=== PATIENT | male | born 2000 | race Hispanic/Latino ===

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

== ENCOUNTER 2020-12-10 08:23 | Emergency (ER) | payer OTHER, SELFPAY ==
[2020-12-10] MEDS ORDERED: ONDANSETRON HCL 4 MG/2 ML VIAL ONE (08:50)
[2020-12-10 08:56] LABS: BASOPHILS % (AUTO) 0.3 % (0.0-5.0); EOSINOPHILS % (AUTO) 0.5 % (0.0-8.0); LYMPHOCYTES % (AUTO) 8.2 % (21.0-51.0); MEAN CORPUSCULAR HEMOGLOBIN 29.6 pg (27.0-33.0); MEAN CORPUSCULAR VOLUME 84.5 fL (80-100); MONOCYTES % (AUTO) 11.2 % (3.0-13.0); NEUTROPHILS % (AUTO) 79.2 % (40.0-77.0); PLATELET COUNT (AUTO) 262 K/uL (130-400); RED BLOOD CELL COUNT(AUTO) 5.92 MIL/uL (4.50-6.20); RED CELL DISTRIBUTION WIDTH 12.8 % (11.0-15.5); WHITE BLOOD COUNT (AUTO) 14.6 K/uL (4.8-10.8)
[2020-12-10 09:08] LABS: CREATININE 1.2 mg/dL (0.5-1.5); POTASSIUM 3.1 mmol/L (3.5-5.1)
[2020-12-10 09:12] LABS: ALBUMIN 4.3 g/dL (3.5-5.0); BILIRUBIN,TOTAL 1.3 mg/dL (0.2-1.0); TOTAL PROTEIN, SERUM 8.1 g/dL (6.0-8.3)
== END 2020-12-10 10:54 | disposition home or self-care (01) ==
LOC: EDH 08:23
DX: K52.9 Noninfective gastroenteritis and colitis, unspecified (principal)
CPT/HCPCS: 36415; 80053; 82150; 83690; 85025; 96361 ×2; 96374; 99283; J2405; J7030

== ENCOUNTER 2022-05-18 07:02 | Emergency (ER) | payer OTHER ==
[~2022-05-18] VITALS: Ht 177.8 cm; Wt 99.8 kg
[2022-05-18] MEDS ORDERED: KETOROLAC 30MG VIAL (30MG/ML) IM STA (07:12)
[2022-05-18] MEDS ORDERED: ORPHENADRINE CITRATE 30 MG/ML ML IM STA (07:12)
[2022-05-18 07:13] VITALS: BP 135/74
[2022-05-18] MEDS ORDERED: NAPR375T6 PO (09:22)
== END 2022-05-18 09:37 | disposition home or self-care (01) ==
LOC: EDH 07:02
DX: S39.012A Strain of muscle, fascia and tendon of lower back, initial encounter (principal); X50.0XXA Overexertion from strenuous movement or load, initial encounter; Y93.89 Activity, other specified; Y92.89 Other specified places as the place of occurrence of the external cause; Y99.8 Other external cause status
CPT/HCPCS: 72100; J1885

== ENCOUNTER 2024-08-29 12:25 | Emergency (ER) | payer OTHER ==
[~2024-08-29] VITALS: Ht 177.8 cm; Wt 101.6 kg
[~2024-08-29 12:25] MED LIST: NAPR-1505 PO
[2024-08-29] MEDS ORDERED: MELO-108 PO (12:48)
--- NOTE | 2024-08-29 12:49 | ERN ---
General Chief Complaint: Back Pain or Injury Stated Complaint: BACK PAIN Time Seen by MD: 12:27 History of Present Illness Initial Comments 24-year-old male who presents for back pain. He was lifting on Tuesday, he was more weight than usual. He felt fine at that time, but he woke up the next morning with some lower thoracic spine pain. It is paraspinal increases with movement and bending. He is not taking any medicine for this. His symptoms are improving, but he reports he still feels in his irritating. No motor d ysfunction. Allergies: Coded Allergies: No Known Allergies (Unverified Allergy, Unknown, 05/18/22) Home Meds Active Scripts Naproxen (Naproxen) 375 Mg Tablet., 375 MG PO BID for 10 Days, #20 TAB Prov:MACKENZIE HAWK MD 05/18/22 Past Medical History Past Medical History: No Pertinent History Past Surgical History: Other ROS Dictation CONSTITUTIONAL: No chills, no fever, no weakness, no diaphoresis, no malaise. HEAD/FACE: No signs of trauma. EENT: No eye pain, no blurred vision, no tearing, no double vision, no ear pain, no ear discharge, no nose pain, no nasal congestion, no throat pain, no throat swelling, no mouth pain. RESPIRATORY: No cough, no orthopnea, no SOB, no stridor, no wheezing. CARDIOVASCULAR: No chest pain, no edema, no palpitations, no syncope. GASTROINTESTINAL/ABDOMINAL: No abdominal pain, no constipation, no diarrhea, no nausea, no vomiting. GENITOURINARY: No abnormal discharge, no dysuria, no frequent urination, no hematuria. No complaints of pain in the genitals. MUSCULOSKELETAL: Midback back pain INTEGUMENTARY: No change in color, no change in hair/nails, no dryness, no lesion, no lumps, no rash. NEUROLOGICAL/PSYCH: No anxiety, not depressed, no emotional problem, no headache, no numbness, no pre-existing deficit, no history of seizures, no tremors, no weakness. HEMATOLOGIC/LYMPHATIC: Not anemic, no history of blood clots, no apparent bleeding, no bruising, glands not swollen. All Systems Negative, Except as Noted. Physical Exam Physical Exam Dictation VITAL SIGNS: Reviewed. GENERAL APPEARANCE: Alert, oriented x3, no acute distress HEAD AND FACE: Non-traumatic. EYES: PERRL, pink conjunctivas, eyelid no trauma, anterior chamber clear. EARS: Pinnas intact and no signs of trauma or erythema. Ear canals clear and no discharge. TMs no erythema. NOSE: No discharge, no bleeding. OROPHARYNX: Mouth normal, teeth no caries, tongue pink. Pharynx clear, no erythema. Tonsils no exudates, no abscesses noted. Mucous membrane moist. NECK: Supple, non-tender, no thyromegaly, no masses, no JVD, no bruits. BREAST: Deferred. CHEST: No tenderness, no crepitus, no paradoxical movement, no retractions. LUNGS: Clear, well-ventilated, symmetric, no rales, no wheezing, no rhonchi, no stridor, good breath sounds bilaterally. HEART: Regular rate, regular rhythm, no murmur, no gallops. VASCULAR: No peripheral edema. ABDOMEN: Soft, positive bowel sounds, nondistended, no guarding, nontender, no rebound, no masses no hepatomegaly, no splenomegaly, no Gonzalez's sign, no hernias. RECTAL: Deferred. GENITAL: Deferred. NEUROLOGICAL: Normal speech, gross motor function intact, gross sensory function intact. MUSCULOSKELETAL: Neck nontender, full range of motion, back nontender, full range of motion. EXTREMITIES: Nontender, full range of motion. SKIN: Color pink, dry, no turgor, no rash, no lacerations, no abrasions, no con tusions. LYMPHATICS: Deferred. MDM CC: Back pain Historian: Patient Comorbidities: None Limitations by social determinants of health: None Differential diagnosis: Sprain/strain, other. Clinically patient was paraspinal discomfort. It is improving. No motor dysfunction. No paresthesias. Ambulatory. No fevers. No midline spinal Pain. No red flags for back pain. Likely musculoskeletal. We will DC. ED Course Vital Signs Date Time Temp Pulse Resp B/P (MAP) Pulse Ox O2 Delivery O2 Flow Rate FiO2 08/29/24 12:31 98.1 73 20 127/76 99 0 DX & DISP Disposition: Discharge Departure Impression: Primary Impression: Strain of thoracic spine Condition: Stable Assign Patient to: Your symptoms are consistent with a sprain/strain. This is likely due to the lifting. You have no red flags at this point in time. It is likely musculoskeletal. I have prescribed meloxicam, which is an anti-inflammatory pain medication. You can take this once per day for the next week or so as needed. You can also try [id number] Voltaren gel or capsaicin cream. Please return to the emergency department if you have any concerns. Scripts Meloxicam (Meloxicam) 15 Mg Tablet 15 MG PO DAILY PRN for PAIN for 10 Days, #10 TAB Prov: GREG GRAVES DO 08/29/24 Referrals: PAUL GOODWIN MD (PCP) GREG GRAVES DO Aug 29, 2024 12:49
[2024-08-29 13:10] VITALS: BP 127/76; PULSE 73; RESP 20; TEMP 98; O2SAT 99
== END 2024-08-29 13:32 | disposition home or self-care (01) ==
LOC: EDH 12:25
DX: S29.012A Strain of muscle and tendon of back wall of thorax, initial encounter (principal); Z79.899 Other long term (current) drug therapy; Z98.890 Other specified postprocedural states; X50.0XXA Overexertion from strenuous movement or load, initial encounter; Y93.89 Activity, other specified; Y92.89 Other specified places as the place of occurrence of the external cause; Y99.8 Other external cause status
CPT/HCPCS: 99283

== ENCOUNTER 2024-10-23 13:03 | Emergency (ER) | payer OTHER ==
[~2024-10-23] VITALS: Ht 172.7 cm; Wt 83.9 kg
[~2024-10-23 13:03] MED LIST changes: +MELO-108 PO
[2024-10-23] MEDS: methoCARBamol 500 MG TABLET PO ONE (15:41)
[2024-10-23] MEDS: ketOROlac 15MG/ML VIAL (15MG/ML) IM ONE (15:45)
--- NOTE | 2024-10-23 16:21 | HMCIMG ---
LUMBAR SPINE 4+VWS HISTORY: Injury COMPARISON: None FINDINGS: 5 images of lumbar spine were obtained. Oblique views were obtained There is straightening of normal lordotic curvature which may be related to muscle spasm or positioning. No loss of vertebral height is seen. No fracture or dislocation is seen. Degenerative changes are seen. IMPRESSION: 1. No fracture is seen.
[2024-10-23] MEDS ORDERED: METH-811 PO (16:30)
[2024-10-23] MEDS ORDERED: NAPR-1196 PO (16:30)
--- NOTE | 2024-10-23 16:30 | ERN ---
General Chief Complaint: Low Back Pain/Injury Stated Complaint: LOWER BACK PAIN Time Seen by MD: 13:07 Time Seen by Midlevel: 13:07 Source: patient History of Present Illness Initial Comments 24-year-old male who presents to the emergency department due to lower back pain. Patient reports pain initiated last week after lifting heavy weights. Denies any fevers, painful urination, difficulty urinating or defecating, saddle numbness or further associated symptoms. Denies any direct trauma or injuries to the back. Denies significant past medical history with. Allergies: Coded Allergies: No Known Allergies (Unverified Allergy, Unknown, 05/18/22) Home Meds Active Scripts Naproxen (Naproxen) 250 Mg Tablet, 1 TAB PO BID for pain for 5 Days, #10 TAB 0 Refills Prov:CAYLA TRAN 10/23/24 Methocarbamol (Methocarbamol) 500 Mg Tablet, 1000 MG PO BID for 5 Days, #20 TAB Prov:CAYLA TRAN 10/23/24 Meloxicam (Meloxicam) 15 Mg Tablet, 15 MG PO DAILY PRN for PAIN for 10 Days, #10 TAB Prov:GREG GRAVES DO 08/29/24 Naproxen (Naproxen) 375 Mg Tablet.dr, 375 MG PO BID for 10 Days, #20 TAB Prov:MACKENZIE HAWK MD 05/18/22 Past Medical History Past Medical History: No Pertinent History Past Surgical History: Other ROS Dictation Constitutional: Negative for fever,chills, and weight loss Eyes: Negative for injury, pain,redness, and discharge ENT: Negative for injury,pain or swelling Cardiovascular: Negative for chest pain, palpitations, and edema Respiratory: Negative for shortness of breath, cough, and wheezing, Abdomen/GI: Negative for abdominal pain, nausea, vomiting, diarrhea, and constipation Back: Negative for injury and pain : Negative for painful urination, bleeding or discharge MS/Extremity: Positive for back pain. Negative for injury and deformity Skin: Negative for rash, and discoloration Neuro: Negative for headache, weakness, numbness, tingling, and seizure Psych: Negative for suicide ideation, homicidal ideation, and hallucinations Physical Exam Physical Exam Dictation General: awake, alert, no acute distress Head/Face: Normocephalic, atraumatic Eyes: PERRL, EOMI, normal conjunctiva ENT: oral cavity clear, oral mucosa moist Neck: Supple, normal range of motion Cardiovascular: RRR, normal S1/S2 Respiratory: CTAB, no respiratory distress, no rales or wheezes Abdomen: Soft, non-tender, non-distended, no guarding or rebound. Skin: Warm, dry, normal turgor, no rash MS/Extremity: Pulses equal, no cyanosis, neurovascular intact, FROM Neuro: COAx4, GCS 15, strength 5/5, CN 2-12 intact, normal cerebellar exam, normal gait Psych: Normal behavior, mood, and affect normal Results EKG/XRAY/US/CT/MRI X-RAY Comment REASON: Pain ORDERING PHYSICIAN: CAYLA TRAN PROCEDURE: LUMB 4VWS - LUMBAR SPINE 4+VWS LUMBAR SPINE 4+VWS HISTORY: Injury COMPARISON: None FINDINGS: 5 images of lumbar spine were obtained. Oblique views were obtained There is straightening of normal lordotic curvature which may be related to muscle spasm or positioning. No loss of vertebral height is seen. No fracture or dislocation is seen. Degenerative changes are seen. IMPRESSION: 1. No fracture is seen. DICTATED BY: TONY TOLEDO MD DATE: 10/23/24 1618 [facility] MDM: Differential diagnosis: Muscle spasms, lumbar sprain, lumbar strain Rationale: 24-year-old male who presents to the emergency department due to lower back pain. Patient reports pain initiated last week after lifting heavy weights. Denies any fevers, painful urination, difficulty urinating or defecating, saddle numbness or further associated symptoms. Denies any direct trauma or injuries to the back. Denies significant past medical history with. Per physical examination patient is in no acute distress. Lumbar x-rays obtained indicating straightening of the normal lordotic curvature which may be related to muscle spasms or positioning, no fractures or dislocations seen. Patient received a methocarbamol and ketorolac in the ED and on re-examination verbalized pain had improved. Patient was educated on findings and diagnosis. Advised to follow up with PCP. Return to the emergency department if any worsening symptoms. Patient verbalized understanding. Patient stable for discharge. There are no social concerns with this patient. I independently interpreted the test that were performed, results were reviewed by me and considered findings on radiology if ordered. Medical management and examination interpretation discussions were had by me with other qualified healthcare professionals as indicated for the patient's care. ED Course Orders Procedure Category Date Status Time Lumbar Spine 4+Vws RAD 10/23/24 Resulted 13:56 Methocarbamol PHA 10/23/24 Complete (Methocarbamol) 14:00 Ketorolac PHA 10/23/24 Complete Tromethamine 15mg/Ml 14:00 Current Medications Medications (Trade) Dose Ordered Sig/[place] Route PRN Reason Start Time Stop Time Status Last Admin Dose Admin Ketorolac Tromethamine (toRADol) 15 mg ONCE ONCE IM 10/23/24 14:00 10/23/24 14:01 DC 10/23/24 15:45 Methocarbamol (methoCARBamol) 1,000 mg ONCE ONCE PO 10/23/24 14:00 10/23/24 14:01 DC 10/23/24 15:41 Vital Signs Date Time Temp Pulse Resp B/P (MAP) Pulse Ox O2 Delivery O2 Flow Rate FiO2 10/23/24 15:48 60 18 114/59 98 Room Air* 0 21 10/23/24 14:11 98.2 59 18 114/70 99 DX & DISP Disposition: Discharge Departure Impression: Primary Impression: Muscle spasm Additional Impression: Lumbar strain Condition: Stable Scripts Naproxen (Naproxen) 250 Mg Tablet 1 TAB PO BID for pain for 5 Days, #10 TAB 0 Refills Prov: CAYLA TRAN 10/23/24 Methocarbamol (Methocarbamol) 500 Mg Tablet 1000 MG PO BID for 5 Days, #20 TAB Prov: CAYLA TRAN 10/23/24 Additional Instructions: Discharge home. Rest. Follow up with primary care in 24 hours. Return to the ER for any acute changes or worsening symptoms. If any medications were prescribed take as directed. Okay to continue home medications unless otherwise discussed during your visit in the emergency room today. Patient was also advised to follow-up with primary care physician in 1 to 2 days for continued monitoring. Referrals: SELF,REFERRAL (PCP) I performed the substantive portion of the visit. I have reviewed and personally made and approve the management plan that is documented in the notes by myself or the [facility]. I acknowledge full responsibility for the patient's management plan. CAYLA TRAN Oct 23, 2024 16:30
[2024-10-23 16:37] VITALS: BP 115/62; PULSE 60; RESP 18; TEMP 98.2; O2SAT 99
== END 2024-10-23 16:37 | disposition home or self-care (01) ==
LOC: EDH 13:03
DX: S39.012A Strain of muscle, fascia and tendon of lower back, initial encounter (principal); M62.838 Other muscle spasm; X50.0XXA Overexertion from strenuous movement or load, initial encounter; Y93.89 Activity, other specified; Y92.89 Other specified places as the place of occurrence of the external cause; Y99.8 Other external cause status
CPT/HCPCS: 99283; 72110; 96372; J1885